=== PATIENT | female | born 1990 | race Caucasian/White ===

== ENCOUNTER 2022-12-27 11:43 | Emergency (ER) | payer MEDICAID, SELFPAY ==
[2022-12-27 11:45] VITALS: BP 127/85; PULSE 103; RESP 16; TEMP 37.2; O2SAT 98
[2022-12-27] MEDS: Lidocaine 1% Multi-Dose W/EPI 1/100,000 50 ML VIAL (12:18)
--- NOTE | 2022-12-27 13:07 | ED.GENADUL_ITS ---
Discharge Plan Disposition Patient Disposition: Home Discharge Details Clinical Impression: Laceration of hand Primary Care Provider: Madeline Campbell ED Provider: Jesus Rocha Home Meds and New Rx's Prescriptions: Continued lamotrigine [Lamictal ODT] 50 mg tablet,disintegrating 50 mg PO DAILY venlafaxine [Effexor XR] 37.5 mg capsule,extended release 24hr 37.5 mg PO DAILY Vyvanse 40 mg capsule 50 mg PO DAILY Discharge Instructions Instructions: Laceration (ED) Additional Instructions: Watch for any signs of infection and return immediately to the emergency department if these occur. Otherwise keep dressing in place for the next 24-48 hours and then keep wound clean and dry. Return to the emergency department 12 days for suture removal. Stand Alone Forms: Work Release Discharge Data Discharge Date/Time-TO BE ENTERED AT DEPARTURE: 12/27/22 13:21 Medical Decision Making Fall with left hand laceration that is a flap laceration. Patient up-to-date on tetanus. 3.5 cm in total length. Distal to injury patient does have two-point discrimination, sensation of light touch and sharp touch along with temperature sensation. Patient has full range of motion of thumb and fingers. No other injury or trauma is noted. Please see procedure note for wound repair. After discussion of diagnosis and plan of care patient has no further needs, questions, or concerns and states clear understanding to return to the emergency department for any worsening symptoms. This documentation was generated using [email or web address] dictation system, please disregard any oddities of phrase or misspellings. HPI General Mode of arrival: ambulatory . Date/Time Provider Initiated Documentation: 12/27/22 11:43 . Limitations to Documentation: no limitations . Information obtained by: patient and RN notes reviewed . History of Present Illness 32 year old F presents to the emergency department with the chief complaint of Left hand laceration, described as mild, with intensity rated at 3. Quality is described as sharp, and is localized to the left and upper extremity. Patient reports no radiation. Patient started experiencing this hour(s) (1) and it has been constant. No relieving factors improve symptom(s), No exacerbating factors reported . Patient notes no other symptoms.. Patient did receive the following treatments prior to arrival, none Related Data Home Medications Medication Instructions Recorded Confirmed lamotrigine 50 mg disintegrating 50 mg PO DAILY 12/27/22 12/27/22 tablet (Lamictal ODT) lisdexamfetamine 40 mg capsule 50 mg PO DAILY 12/27/22 12/27/22 (Vyvanse) venlafaxine 37.5 mg 37.5 mg PO DAILY 12/27/22 12/27/22 capsule,extended release 24 hr (Effexor XR) Allergies Allergy/AdvReac Type Severity Reaction Status Date / Time No Known Allergies Allergy Verified 12/27/22 11:51 General Stated Complaint: Laceration ARIADNE: 4 Review of Systems Narrative: 6 systems reviewed and unremarkable except what is marked below. Musculoskeletal Musculoskeletal: Reports as per HPI, Denies limited range of motion, Denies numbness and Reports tingling Integumentary/Breasts Skin/Breast: Reports as per HPI Neurologic Neurologic: Denies numbness and Reports tingling PFSH All Active Problems Laceration of hand (Acute) Social History Smoking/Tobacco Use Status: Never Smoking risk assessment performed?: Yes Alcohol Intake: current Alcohol Intake frequency: a few times a month Drug use: Never Substance use type: does not use Details: does use editables Do you feel safe at home: Yes Do you feel safe in your relationship?: Yes Exam Const General: cooperative, no acute distress and not ill appearing Orientation: alert, awake and oriented x3 Resp Effort & Inspection: normal respiratory effort, able to speak in complete sentences and no respiratory distress Cardio Rate: regular rate Rhythm: regular rhythm Pulses: normal peripheral pulses Neuro General: patient alert, patient awake, patient oriented x3, moves all extremities and no focal motor deficits Sensory Exam: no sensory deficits noted Extrem General: normal exam except as noted Left upper extremity: hand Details: normal capillary refill, neuromotor exam normal, neurosensory exam normal, tendon exam normal, tenderness Location: of the palm Location: at the thenar eminence, vascular exam Details: radial pulse present, normal ROM of fingers and laceration palm palmar aspect Details: flap, involving subcutaneous tissue, with motor nerve function intact and with sensation intact Course Vital Signs Vital signs: Vital Signs Temperature 37.2 C 12/27/22 11:45 Pulse 103 H 12/27/22 11:45 Respiratory Rate 16 12/27/22 11:45 Blood Pressure 127/85 12/27/22 11:45 Pulse Oximetry 98 12/27/22 11:45 Temperature 37.2 C 12/27/22 11:45 Temperature Source Oral 12/27/22 11:45 Pulse 103 H 12/27/22 11:45 Respiratory Rate 16 12/27/22 11:45 Respiratory Effort Normal 12/27/22 11:50 Blood Pressure 127/85 12/27/22 11:45 Blood Pressure Position Sitting 12/27/22 11:45 Pulse Oximetry 98 12/27/22 11:45 Oxygen Delivery Method Room Air 12/27/22 11:45 Oxygen Flow Rate 0 12/27/22 11:45 Pain Level 3 12/27/22 11:53 Procedures Laceration Laceration 1: Site: hand Side (If applicable): left Size (cm): 3.5 Description: flap Depth: simple, single layer Local Anesthetic: Lidocaine 1% and with Epi Amount of anesthesia used (mL): 5 Pre-repair: wound explored and irrigated extensively Skin layer closed with: other (prolene) Size (cm): 4-0 Number of sutures: 5 Technique: simple, interrupted PAWSS Have you Been Recently Intoxicated or Drunk Within the Last 30 days?: No Have you Ever Experienced Previous Episodes of Alcohol Withdrawal?: No Have you ever Experienced Withdrawal Seizures?: No Have you ever Experienced Delirium Tremens(DT)s?: No Have you ever undergone Alcohol Rehabilitation Treatment (i.e, inpt ot outpatient treatment programs)?: No Have you ever Experienced Blackouts?: No Have you ever Combined Alcohol with other Downers within the last 90 days?: No Have you ever Combined Alcohol with any other Substance of Abuse during the last 90 days?: No Result: 0
--- NOTE | 2022-12-30 13:27 | NUR.NOTE ---
Nursing Note: PT called and asked for referral to ortho for follow up
--- NOTE | 2022-12-30 13:32 | ED.FU.B_ITS ---
Date of service: 12/30/22 Time of Service: 13:32 Follow Up Plan: Patient called in follow-up to her visit on 12/27/2022. She notes that she is having some difficulty with thumb movement and also that the tips of her fingers feel numb like [id number]. She also notes substantial pain when she attempts to move her digits. Patient is requesting [place] to [place] [facility] I think this is appropriate given her symptoms and concern for potential neurologic injury. ED care management is currently on vacation. I will ask that the community health specialist here today assist in arranging timely outpatient follow-up with hand specialist at [facility].
--- NOTE | 2022-12-30 14:28 | NUR.NOTE ---
Nursing Note: Patient called stating that she now wanted a referral to a hand specialist at [facility] [place]. Dr. Soren Hall spoke witih the patient and determined that with her now symptoms she needed to be seen C[facility] for concern for nerve injury and possible tendon laceration. I called [facility] [place] [facility]; Reji, and did the referral with her. I faxed to them the provider notes, RN note, and demographics. [facility] [place] [facility] faxed to [facility], #[phone].
== END 2022-12-27 13:21 | disposition home or self-care (01) ==
PROVIDERS: Emergency Provider Nurse Practitioner Family; PCP Physician Assistant
DX: S61.412A Laceration without foreign body of left hand, initial encounter (principal); W19.XXXA Unspecified fall, initial encounter
CPT/HCPCS: 12002; 99282; 99283

== ENCOUNTER 2023-05-02 14:31 | Outpatient (REF) | payer MEDICAID, SELFPAY | END 2023-05-02 14:32 | disposition home or self-care (01) | LOC: LBN 14:31 | PROVIDERS: PCP Physician Assistant; Visit Provider Nurse Practitioner Family | DX: J02.9 Acute pharyngitis, unspecified (principal) | CPT/HCPCS: 87081 ==

== ENCOUNTER 2023-11-18 15:54 | Outpatient (CLI) | payer MEDICAID, SELFPAY ==
--- NOTE | 2023-11-18 15:45 | DI.RAD_ITS ---
Exam(s) XR KNEE RT 3V AP,LAT,PHOEBE EXAM: XR KNEE RT 3V AP,LAT,PHOEBE CLINICAL HISTORY: RIGHT KNEE PAIN. TECHNIQUE: 2D digital imaging was performed. COMPARISON: No exams were available for comparison FINDINGS: 3 views No evidence of fracture nor prominent joint effusion. Bone density normal. No osseous lesions. No degenerative changes. No offset of the patella nor narrowing of the patellofemoral compartment. No osteochondral defects IMPRESSION: No acute osseous findings in the knee. No prominent joint effusion evident. DATA REPOSITORY: RADIATION DOSE DELIVERED:
== END 2023-11-18 15:55 | disposition home or self-care (01) ==
LOC: DIORS 15:54
PROVIDERS: PCP Family Medicine; Visit Provider Student in an Organized Health Care Education/Training Program
DX: M25.561 Pain in right knee (principal)
CPT/HCPCS: 73562

== ENCOUNTER → 2023-12-30 03:58 | Outpatient (CLI) | payer MEDICAID, SELFPAY ==
--- NOTE | 2023-12-30 06:45 | DI.MRI_ITS ---
Exam(s) MR LOWER JOINT RT WO EXAM: MR LOWER JOINT RT WO CLINICAL HISTORY: ? acute MEDIAL MENISCAL TEAR,S83.241a TECHNIQUE: Multiplanar multisequence MRI of the knee was performed. COMPARISON: DOC,MR MRI-LOWER EXT ANY JOINT WITHOUT CONTRAST from 10/18/2015 CR XR KNEE RT 3V AP,LAT,PHOEBE from 11/18/2023 FINDINGS: EFFUSION: There is a minimal amount of increased joint fluid in the lateral aspect of the joint predo minantly between the iliotibial band and lateral condyle. Iliotibial band itself appears unremarkabl e. There is a thin Alejandro cyst in the medial popliteal fossa which measures 2.5 cm craniocaudal lengt h by 0.3 cm wide. MARROW:There is no evidence of fracture, bone contusion, nor osteochondral defects.. There are no si gnificant osseous lesions. PATELLOFEMORAL COMPARTMENT: The quadriceps tendon is intact. The patellar ligament is intact. There is mild-moderate relatively focal thinning of the retropatellar cartilage over the medial facet with subjacent mild subarticular bone edema in the posterior patella at this level. No osteochondral defect. The retropatellar cartilage over the mid and lateral facet exhibits normal thickness. There is no osteochondral defect.There is no intraosseous signal to suggest recent patellar dislocation. Th ere are no patellar retinacular tears. CRUCIATE LIGAMENTS: The anterior cruciate ligament is intact.The posterior cruciate ligament is intac t. MEDIAL COMPARTMENT/MEDIAL MENISCUS: There is mild thinning at the root of the posterior horn of the m edial meniscus but there does not appear to be an actual tear at this level nor elsewhere in the post erior and anterior horns of the medial meniscus..There is very mild subarticular bone edema in the ou ter 3rd of the main weight-bearing surface of the medial femoral condyle. No prominent cartilage thin giselle over this area. No osteochondral defect. No osteophyte evident at this level.. MEDIAL COLLATERAL LIGAMENT: Intact. Also no evidence of significant meniscocapsular separation. LATERAL COMPARTMENT/LATERAL MENISCUS: There is no evidence of lateral meniscal tear.There are no sherri dral defects, osteochondral defects, subarticular marrow edema, nor osteophytes evident. ILIOTIBIAL BAND: Intact LATERAL COLLATERAL LIGAMENT COMPLEX: The fibular collateral ligament is intact. The biceps femoris t endon is intact.Popliteus muscle and tendon are intact. IMPRESSION: 1. Small amount of increased joint fluid and small-thin Alejandro's cyst. No loose intra-articular bodies . 2. Mild thinning of the inner most aspect of the posterior horn of the medial meniscus at the level t he root but with out a true meniscal tear at this level nor elsewhere in the knee. Also no meniscal e xtrusion nor intrusion nor meniscocapsular separation. 3. Small area of subtle subarticular bone edema in the outer most aspect of the medial femoral condyl e over the main weight-bearing surface. No osteochondral defect at this level. 4. No evidence of cruciate nor collateral ligament tears. 5. Mild-moderate focal thinning of the retropatellar cartilage over the medial facet with mild subart icular bone edema in the posterior medial aspect of the patella. No osteochondral defects seen at thi s level (nor elsewhere in the knee). DATA REPOSITORY:
== END ==
PROVIDERS: PCP Physician Assistant; Visit Provider Student in an Organized Health Care Education/Training Program
DX: S83.241A Other tear of medial meniscus, current injury, right knee, initial encounter (principal)
CPT/HCPCS: 73721

== ENCOUNTER → 2024-04-30 14:54 | Outpatient (CLI) | payer MEDICAID, SELFPAY ==
--- NOTE | 2024-04-30 10:00 | DI.US_ITS ---
Exam(s) US PELVIS TRANSVAGINAL EXAM: US PELVIS TRANSVAGINAL CLINICAL HISTORY: left lower pelvic pain, R10.2 TECHNIQUE: Transabdominal and transvaginal imaging was performed using standard protocol. COMPARISON: No exams were available for comparison FINDINGS: UTERUS: Anteverted. 8.5 x 4.2 x 5.3 cm Endometrium: 7 mm 8 millimeter cyst within the endometrium near the fundus. No visible polyp. Myometrium: Unremarkable. Cervix: Unremarkable. OVARIES: Right: Cyst or mass: None. Left: Cyst or mass: None. DOPPLER: Color: Symmetric and uniform flow to both ovaries. No hyperemia. CUL-DE-SAC: Free fluid: None. IMPRESSION: 1. Normal-size uterus. Endometrial thickness cysts 7 millimeters. 8 millimeter endometrial cyst. 2. Unremarkable bilateral ovaries. DATA REPOSITORY:
== END ==
PROVIDERS: PCP Physician Assistant; Visit Provider Physician Assistant
DX: R10.2 Pelvic and perineal pain (principal); N80.00 Endometriosis of the uterus, unspecified
CPT/HCPCS: 76830; 76856

== ENCOUNTER 2024-04-30 15:06 | Outpatient (REF) | payer MEDICAID, SELFPAY ==
[2024-05-04 14:46] LABS: Chlamydia Result Invalid (Negative); GC Result Invalid (Negative)
== END 2024-04-30 15:07 | disposition home or self-care (01) ==
LOC: LBN 15:06
PROVIDERS: PCP Physician Assistant; Visit Provider Physician Assistant
DX: N39.0 Urinary tract infection, site not specified (principal); R10.2 Pelvic and perineal pain; N76.0 Acute vaginitis
CPT/HCPCS: 87491; 87591; 87086; 87480; 87510; 87660

== ENCOUNTER 2024-06-20 14:30 | Emergency (ER) | payer MEDICAID, SELFPAY ==
[2024-06-20 14:43] VITALS: BP 136/83; PULSE 102; RESP 18; TEMP 37.1; O2SAT 100
--- NOTE | 2024-06-20 14:45 | DI.CT_ITS ---
Exam(s) CT ABDOMEN PELVIS W EXAM: CT ABDOMEN PELVIS W CLINICAL HISTORY: LLQ pain hx endometrial cyst, ablasion, salpingect. TECHNIQUE: Imaging Protocol: Axial computed tomography images with coronal and sagittal reformatted images were created and reviewed CONTRAST MATERIAL: Intravenous: Omnipaque-350 100cc Oral: None COMPARISON: No exams were available for comparison FINDINGS: VISUALIZED LUNG BASES: No nodules nor pleural effusions evident. Abdominal images are somewhat blurred from motion artifact. Patient was apparently not able to hold still. ABDOMEN: There is no ascites. LIVER: There are no focal hepatic lesions evident. No dilated intrahepatic ducts. GALLBLADDER/BILIARY: No obvious gallbladder pathology. CBD is not dilated. PANCREAS: No evidence of pancreatic mass nor dilatation of the pancreatic duct. SPLEEN: Spleen is not enlarged. No obvious intrasplenic lesions. Splenic and portal veins are paten t. ADRENALS: There are no significant adrenal masses. KIDNEYS:No cysts evident. No solid renal masses. No calculi nor hydronephrosis.. ABDOMINAL AORTA: Abdominal aorta is not enlarged. LYMPH NODES:There is no retroperitoneal nor paraaortic adenopathy. ABDOMINAL WALL: No evidence of significant anterior abdominal wall nor inguinal hernia. GI: There is no evidence of bowel obstruction, obvious free intraperitoneal air, nor abscess. PELVIS: GI: Appendix is difficult to identify is separate structure. No evidence of obvious acute appendicit is.No evidence of sigmoid diverticulitis. LYMPH NODES: There is no intrapelvic nor inguinal adenopathy. REPRODUCTIVE: Uterus and adnexal regions appear age-appropriate. There is a small cyst in the right ovary which measures approximately 1.3 x 1.3 cm, most probably just follicular. There are no signifi cant adnexal findings and there is no free fluid in the adnexal regions nor in the cul-de-sac. URINARY BLADDER: No calculi nor obvious masses evident not distended. Mild uniform thickening of the urinary bladder wall is most probably related to under distension. There is no significant perivesi cular streaking. OSSEOUS: No fractures and no significant osseous lesions. IMPRESSION: 1. Less than optimal study due to motion artifact. However, there are no obvious acute findings in t he abdomen pelvis. 2. There is a 1.3 cm cyst in the right ovary which is probably follicular. No free fluid. Report called by myself to ER physician 06/20/2024 at 4:45 p.m. RADIATION DOSE DELIVERED: 334.84mGy.cm Total DLP DATA REPOSITORY: All CT scans at this facility are submitted to the National Radiology Data Registry (NRDR) Dose Index Registry (DIR) with the [employer] (ACR). RADIATION OPTIMIZATION: All CT scans at this facility use at least one of these dose optimization te chniques: automated exposure control; mA and/or kV adjustment per patient size (includes targeted exa ms where dose is matched to clinical indication); or iterative reconstruction.
[2024-06-20] MEDS: ACETAMINOPHEN 1,000 MG/100 ML BTL 400 MG IVPB (15:20)
[2024-06-20] MEDS: Normal Saline 1,000 ML 1000 ML IV (15:20)
--- NOTE | 2024-06-20 15:31 | W.ED.GENAD ---
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 Clinical Impression: Ovarian cyst, Abdominal pain Primary Care Provider: Madeline Campbell ED Provider: Shaggy Massey Home Meds and New Rx's Prescriptions: No Action lamotrigine [Lamictal ODT] 50 mg tablet,disintegrating 50 mg PO DAILY venlafaxine [Effexor XR] 37.5 mg capsule,extended release 24hr 37.5 mg PO DAILY Vyvanse 40 mg capsule 50 mg PO DAILY ondansetron 4 mg tablet,disintegrating 4 mg PO DAILY PRN (Reason: nausea and vomiting) Qty: 30 0RF lisdexamfetamine [Vyvanse] 50 mg capsule 50 mg PO DAILY venlafaxine [Effexor XR] 37.5 mg capsule,extended release 24hr 37.5 mg PO DAILY lamotrigine [Lamictal] 25 mg tablet 50 mg PO DAILY fexofenadine [Asya Allergy] 180 mg tablet 180 mg PO DAILY Discharge Instructions Instructions: Abdominal Pain, Adult ED Additional Instructions: You are found to have a 1.3 cm right ovarian cyst. Follow-up closely with your 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 team. Please return to the emergency department for any worsening symptoms HPI General Date/Time Provider Initiated Documentation: 06/20/24 14:36. 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 Endorses some mild intermittent spotting over the last several months to years Related Data Home Medications ?Medication ?Instructions ?Recorded ?Confirmed lamotrigine 50 mg disintegrating 50 mg PO DAILY 12/27/22 06/20/24 tablet (Lamictal ODT) lisdexamfetamine 40 mg capsule 50 mg PO DAILY 12/27/22 06/20/24 (Vyvanse) venlafaxine 37.5 mg 37.5 mg PO DAILY 12/27/22 06/20/24 capsule,extended release 24 hr (Effexor XR) ondansetron 4 mg disintegrating 4 mg PO DAILY PRN nausea and 08/01/23 06/20/24 tablet vomiting #30 tabs fexofenadine 180 mg tablet 180 mg PO DAILY 11/18/23 06/20/24 (Asya Allergy) lamotrigine 25 mg tablet (Lamictal) 50 mg PO DAILY 11/18/23 06/20/24 lisdexamfetamine 50 mg capsule 50 mg PO DAILY 11/18/23 06/20/24 (Vyvanse) venlafaxine 37.5 mg 37.5 mg PO DAILY 11/18/23 06/20/24 capsule,extended release 24 hr (Effexor XR) Previous Rx's ?Medication ?Instructions ?Recorded ondansetron 4 mg disintegrating 4 mg PO DAILY PRN nausea and 08/01/23 tablet vomiting #30 tabs Allergies Allergy/AdvReac Type Severity Reaction Status Date / Time Latex, Natural Rubber AdvReac Intermediate Hives Verified 06/20/24 14:47 General Stated Complaint: 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 ARIADNE: 3 Exam Narrative Exam Narrative: Alert oriented interactive Voice mucous membranes tolerate secretions Normal voice no stridor Normal respiratory effort speaking full sentences, no tachypnea no cyanosis Abdomen soft nontender nondistended no palpable mass Moving all extremities without deficit warm well-perfused extremities Alert oriented interactive no focal deficits ambulatory without assistance no ataxia, normal speech Course Vital Signs Vital signs: Vital Signs Temperature 37.1 C 06/20/24 14:43 Pulse 102 H 06/20/24 14:43 Respiratory Rate 18 06/20/24 14:43 Blood Pressure 136/83 06/20/24 14:43 Pulse Oximetry 100 06/20/24 14:43 Temperature 37.1 C 06/20/24 14:43 Pulse 102 H 06/20/24 14:43 Respiratory Rate 18 06/20/24 14:43 Respiratory Effort Normal 06/20/24 15:22 Blood Pressure 136/83 06/20/24 14:43 Pulse Oximetry 100 06/20/24 14:43 Pain Level 6 06/20/24 15:18 Medical Decision Making 34-year-old female history of endometriosis, endometrial cysts, abnormal Pap smear, presents with generalized fatigue over the last week, left lower quadrant abdominal discomfort, no nausea no vomiting no diarrhea no constipation, chronic intermittent vaginal spotting, hemodynamically stable mildly tachycardic on arrival afebrile nontoxic nonperitoneal. Consider endometriosis versus ovarian cyst versus dysfunctional uterine bleeding versus UTI versus less likely diverticulitis or diverticulosis lower suspicion for colitis or enteritis lower suspicion for /ectopic . Must also consider malignancy. Will obtain CT abdomen pelvis, basic labs urinalysis Monospot COVID flu RSV fluids analgesia anti-inflammatory close reassessment. Patient has close follow-up with 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 team at [facility] early next month 16: 58 patient rest comfortably no acute distress labs and imaging are largely unremarkable, right ovarian cyst 1.[address] scan. Patient has close follow-up with [facility] 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 team. Given home care instructions and return precautions Quality:SDOH Health Related Social Needs: No Data to Display [facility] All Active Problems (Updated 06/20/24 @ 17:00 by Shaggy Massey MD) Abdominal pain (Acute) Ovarian cyst (Acute) Pelvic pain (Acute) No-show for appointment (Acute) Patellar tendinitis of both knees (Acute) Hypermobility syndrome (Acute) Acute medial meniscus tear of right knee (Acute) Social History (System 12/16/23 @ 12:04 by Samia Reveles) Smoking/Tobacco Use Status: Never Smoking risk assessment performed?: Yes Alcohol Intake: current Alcohol Intake frequency: a few times a month Drug use: Never Substance use type: does not use Details: does use editables Housing: house Do you feel safe at home: Yes Do you feel safe in your relationship?: Yes
[2024-06-20 15:35] LABS: Abs Immature Grans 0.03 10^3/uL (0.0-0.06); Absolute Basophil Count 0.03 10^3/uL (0.0-0.2); Absolute Eosinophil Count 0.04 10^3/uL (0.0-0.7); Absolute Lymphocyte Count 1.16 10^3/uL (1.2-3.4); Absolute Monocyte Count 0.37 10^3/uL (0.1-0.8); Absolute Neutrophil Count 4.88 10^3/uL (1.2-6.7); Basophils % 0.5 %; Eosinophils % 0.6 %; HCT 46.1 % (36.0-46.0); Immature Grans % 0.5 %; Lymphocytes % 17.8 %; MCH 30.5 pg (27.0-33.0); MCHC 32.5 % (32.0-36.0); MCV 94 fL (80-95); MPV 9.2 fL (8.0-11.0); Monocytes % 5.7 %; Neutrophils % 74.9 %; Platelet Count 283 10^3/uL (130-400); RBC 4.91 10^6/uL (3.93-5.22); RDW 11.9 % (11.7-14.6); RDW-SD 41.3 fL; WBC 6.51 10^3/uL (4.4-10.8)
[2024-06-20 15:37] LABS: Bilirubin Negative (Negative); Blood Negative (Negative); Clarity Clear (Clear); Glucose Negative (Negative); Ketones Negative (Negative); Leukocyte Esterase Negative (Negative); Nitrite Negative (Negative); Urobilinogen 0.2 mg/dL (Up to 0.2)
[2024-06-20 15:49] LABS: Mono Screening Negative (Negative)
[2024-06-20 15:55] LABS: ALT 31 U/L (14-59); AST 32 U/L (15-37); Albumin 4.8 g/dL (3.4-5.0); Alkaline Phosphatase 88 U/L (46-116); BUN 7 mg/dL (7-18); Bilirubin, Total 0.81 mg/dL (0.2-1.0); CREATININE 0.8 mg/dL (0.55-1.02); Calcium 9.4 mg/dL (8.5-10.1); Chloride 99 mmol/L (98-107); Estimated GFR 99.09 (mL/min/1.73m2); Glucose 135 mg/dL (74-106); Potassium 3.3 mmol/L (3.5-5.1); Sodium 139 mmol/L (136-145); Total Protein 8.5 g/dL (6.4-8.2)
[2024-06-20] MEDS: Normal Saline - Diluent 50 ML VIAL IJ (16:23)
[2024-06-20] MEDS: Omnipaque 350 MG/ML 100 ML BTL IJ (16:24)
[2024-06-20 16:27] LABS: COVID-19 PCR Negative (Negative); Influenza A PCR Negative (Negative); Influenza B PCR Negative (Negative); RSV PCR Negative (Negative); Source Nasopharynx
[2024-06-20 16:53] VITALS: BP 122/86; PULSE 80; RESP 14; TEMP 36.8; O2SAT 98
--- NOTE | 2024-06-21 08:38 | NUR.NOTE ---
[id number] patient called stating that she has hives. Some are blotchy and spreading all over. No trouble breathing. She stated she had CT contrast yesterday, and is wondering if that is causing it. Consulted with Jane Begum RN and told the patient that she should return to ED or see her PCP for re-evaluation. Patient stated she would. Nursing Note:
== END 2024-06-20 17:09 | disposition home or self-care (01) ==
PROVIDERS: Emergency Provider Emergency Medicine; PCP Physician Assistant
DX: R10.32 Left lower quadrant pain (principal); N83.201 Unspecified ovarian cyst, right side
CPT/HCPCS: 80053; 81025; 87637; 96365; 99285; 74177; 81003; 85025; 86308; 99284; J0131; J3490

== ENCOUNTER 2024-06-21 09:15 | Emergency (ER) | payer MEDICAID, SELFPAY ==
[2024-06-21 09:17] VITALS: BP 151/98; PULSE 122; RESP 18; TEMP 36.9; O2SAT 98
[2024-06-21] MEDS: diphenhydrAMINE 50 MG/ML VIAL IVP (09:37)
[2024-06-21] MEDS: Famotidine 20 MG/2 ML VIAL IVP (09:37)
--- NOTE | 2024-06-21 09:37 | ED.GENADUL_ITS ---
Discharge Plan Disposition Patient Disposition: Home Condition: Stable Discharge Details Clinical Impression: Anaphylactic reaction, Allergic reaction to contrast dye Primary Care Provider: Madeline Campbell ED Provider: Soren Hall Home Meds and New Rx's Prescriptions: New prednisone 20 mg tablet 20 mg PO DAILY Qty: 8 0RF diphenhydramine HCl [Benadryl Allergy] 25 mg tablet 25 mg PO TID PRNQty: 10 0RF Continued venlafaxine [Effexor XR] 37.5 mg capsule,extended release 24hr 37.5 mg PO DAILY Vyvanse 40 mg capsule 50 mg PO DAILY ondansetron 4 mg tablet,disintegrating 4 mg PO DAILY PRN (Reason: nausea and vomiting) Qty: 30 0RF lamotrigine [Lamictal] 25 mg tablet 50 mg PO DAILY fexofenadine [Asya Allergy] 180 mg tablet 180 mg PO DAILY magnesium oxide 500 mg capsule 500 mg PO DAILY ABC Complete Women's 18-400 mg-mcg tablet 1 tab PO DAILY Discharge Instructions Instructions: Anaphylaxis - Discharge instructions Additional Instructions: There is concern that you had an anaphylactic reaction to contrast dye. Please be sure to let your healthcare provider know this contrast allergy in the future. Please contact your primary care physician to arrange follow-up. Return to the ER immediately for any worsening or new concerning symptoms. Referrals: Madeline Campbell [Primary Care Provider] - [facility] General Mode of arrival: ambulatory . Date/Time Provider Initiated Documentation: 06/21/24 09:19 . Limitations to Documentation: no limitations . Information obtained by: patient . HPI Narrative: 34-year-old female presents with chief complaint of rash. Patient notes itchy hives that started last night and have persisted. Patient notes localized to a full-body, waxing and waning. She notes associated feeling of something in her throat. She is able to swallow. No tongue swelling. No shortness of breath. Patient did take Zyrtec about 45 minutes ago. 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 Patient was here yesterday for abdominal pain and had CT of the abdomen pelvis with IV contrast. No known prior history to contrast dye although her father has contrast dye allergy. No new meds or foods since ED evaluation yesterday. Related Data Home Medications ?Medication ?Instructions ?Recorded ?Confirmed lisdexamfetamine 40 mg capsule 50 mg PO DAILY 12/27/22 06/21/24 (Vyvanse) venlafaxine 37.5 mg 37.5 mg PO DAILY 12/27/22 06/21/24 capsule,extended release 24 hr (Effexor XR) ondansetron 4 mg disintegrating 4 mg PO DAILY PRN nausea and 08/01/23 06/21/24 tablet vomiting #30 tabs fexofenadine 180 mg tablet 180 mg PO DAILY 11/18/23 06/21/24 (Asya Allergy) lamotrigine 25 mg tablet (Lamictal) 50 mg PO DAILY 11/18/23 06/21/24 diphenhydramine HCl 25 mg tablet 25 mg PO TID PRN #10 tabs 06/21/24 (Benadryl Allergy) magnesium oxide 500 mg capsule 500 mg PO DAILY 06/21/24 06/21/24 multivitamin-ferrous 1 tab PO DAILY 06/21/24 06/21/24 fumarate-folic acid 18 mg-400 mcg tablet (ABC Complete Women's) prednisone 20 mg tablet 20 mg PO DAILY #8 tabs 06/21/24 Previous Rx's ?Medication ?Instructions ?Recorded ondansetron 4 mg disintegrating 4 mg PO DAILY PRN nausea and 08/01/23 tablet vomiting #30 tabs diphenhydramine HCl 25 mg tablet 25 mg PO TID PRN #10 tabs 06/21/24 (Benadryl Allergy) prednisone 20 mg tablet 20 mg PO DAILY #8 tabs 06/21/24 Allergies Allergy/AdvReac Type Severity Reaction Status Date / Time Iodinated Contrast Media Allergy Severe Anaphylaxis Verified 06/21/24 11:11 oak Allergy Severe Anaphylaxis Verified 06/21/24 09:43 Latex, Natural Rubber AdvReac Intermediate Hives Verified 06/21/24 09:43 General Stated Complaint: Allergic ARIADNE: 3 Review of Systems All systems reviewed & are unremarkable except as noted in HPI and below Constitutional Constitutional: Denies fever(s) Cardiovascular Cardiovascular: Denies dyspnea Respiratory Respiratory: Denies dyspnea Gastrointestinal Gastrointestinal: Reports abdominal pain (LLQ) Exam Const General: cooperative HENMT Mouth: moist mucous membranes Throat: posterior oropharynx normal Other: Voice normal Eyes Conjunctivae: normal conjunctivae Sclera: normal sclerae Neck Neck: trachea midline and supple Resp Auscultation: clear to auscultation bilaterally, no rales, no rhonchi and no wheezes Cardio Rate: regular rate and not tachycardic Rhythm: regular rhythm GI Palpation: soft, not firm, no guarding, no masses, not rigid and nontender Skin Rashes: rashes noted (hives on neck and sparsely distributed on extremities) Neuro General: patient alert, patient awake and tone normal Extrem General: no edema Psych Appearance: grossly normal Mental Status: mental status grossly normal Course Vital Signs Vital signs: Vital Signs Temperature 36.9 C 06/21/24 09:17 Pulse 122 H 06/21/24 09:17 Respiratory Rate 18 06/21/24 09:17 Blood Pressure 151/98 H 06/21/24 09:17 Pulse Oximetry 98 06/21/24 09:17 Temperature 36.9 C 06/21/24 09:17 Temperature Source Oral 06/21/24 09:17 Pulse 122 H 06/21/24 09:17 Respiratory Rate 18 06/21/24 09:17 Respiratory Effort Short of Breath 06/21/24 09:23 Respiratory Pattern Normal 06/21/24 09:23 Blood Pressure 151/98 H 06/21/24 09:17 Blood Pressure Position Sitting 06/21/24 09:17 Pulse Oximetry 98 06/21/24 09:17 Oxygen Delivery Method Room Air 06/21/24 09:17 Oxygen Flow Rate 0 06/21/24 09:17 Pain Level 0 06/21/24 09:17 Medical Decision Making 951??patient seen immediately on arrival. Patient is a 34-year-old female with history of endometriosis, endometrial cysts, abnormal Pap smear, seen here yesterday for left lower quadrant abdominal pain, had CT of the abdomen pelvis with IV contrast and noted to have ovarian cyst. Patient returns with concern for allergic reaction. Patient is experiencing full body hives as well as sensation of swelling in her throat. Patient is tachycardic. Mildly hypertensive. Airway intact. Saturating well in no respiratory distress. Lungs clear bilaterally. Patient was experiencing SOB prior to arrival. 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 No known allergy to contrast dye. Plan to treat with Solu-Medrol IV, Benadryl IV, Pepcid IV. I will give IV fluid bolus. -- Patient reassessed and having some nausea. No vomiting. Zofran IV administered. 1113 --patient reassessed and symptoms have significantly improved. Swelling in throat has resolved. Patient continues to saturate well in no respiratory distress. Hemodynamically stable. 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 Reviewed use with the patient. Plan for discharge with outpatient follow-up. We will continue Benadryl over the next couple days and 5-day steroid burst. Usual and customary discharge instructions were reviewed. Patient was encouraged to return immediately for any worsening or new concerning symptoms. Lab Data Lab results reviewed: Yes I reviewed the patient's lab results. Labs: Laboratory Tests Range/Units 06/21/ 09:25 WBC (4.4-10.8) 10^3/uL 5.65 RBC (3.93-5.22) 10^6/uL 4.74 Hgb (11.2-15.7) g/dL 14.5 Hct (36.0-46.0) % 44.3 MCV (80-95) fL 94 MCH (27.0-33.0) pg 30.6 MCHC (32.0-36.0) % 32.7 RDW (11.7-14.6) % 11.9 Plt Count (130-400) 10^3/uL 256 MPV (8.0-11.0) fL 9.2 Immature Gran % % 0.4 Neutrophils % % 62.7 Lymphocytes % % 25.5 Monocytes % % 7.3 Eosinophils % % 3.2 Basophils % % 0.9 Nucleated RBC % (0.0-0.3) % 0.0 Absolute Neutrophils (1.2-6.7) 10^3/uL 3.55 Absolute Lymphocytes (1.2-3.4) 10^3/uL 1.44 Absolute Monocytes (0.1-0.8) 10^3/uL 0.41 Absolute Eosinophils (0.0-0.7) 10^3/uL 0.18 Absolute Basophils (0.0-0.2) 10^3/uL 0.05 Sodium (136-145) mmol/L 138 Potassium (3.5-5.1) mmol/L 3.7 Chloride (98-107) mmol/L 100 Carbon Dioxide (21.0-32.0) mmol/L 30.4 Anion Gap (3-11) mmol/L 7.6 BUN (7-18) mg/dL 6 L Creatinine (0.55-1.02) mg/dL 0.8 Est GFR (CKD-EPI 2020) (mL/min/1.73m2) 99.09 Glucose (74-106) mg/dL 92 Calcium (8.5-10.1) mg/dL 9.2 Total Bilirubin (0.2-1.0) mg/dL 0.85 AST (15-37) U/L 28 ALT (14-59) U/L 29 Alkaline Phosphatase (46-116) U/L 75 Total Protein (6.4-8.2) g/dL 7.9 Albumin (3.4-5.0) g/dL 4.3 Quality:SDOH Health Related Social Needs: No Data to Display PFSH All Active Problems (Updated 06/21/24 @ 11:22 by Soren Hall MD) Allergic reaction to contrast dye (Acute) Anaphylactic reaction (Acute) Abdominal pain (Acute) Ovarian cyst (Acute) Pelvic pain (Acute) No-show for appointment (Acute) Patellar tendinitis of both knees (Acute) Hypermobility syndrome (Acute) Acute medial meniscus tear of right knee (Acute) Social History Smoking/Tobacco Use Status: Current-Occasional Tobacco Type: cigarettes and e- cigarettes Smoking risk assessment performed?: Yes Alcohol Intake: current Alcohol Intake frequency: a few times a week Alcohol type: wine Drug use: Never Substance use type: does not use Housing: house Do you feel safe at home: Yes Do you feel safe in your relationship?: Yes
[2024-06-21] MEDS: methylPREDNISolone SUCC 125 MG VIAL IVP (09:38)
[2024-06-21 09:45] LABS: Abs Immature Grans 0.02 10^3/uL (0.0-0.06); Absolute Basophil Count 0.05 10^3/uL (0.0-0.2); Absolute Eosinophil Count 0.18 10^3/uL (0.0-0.7); Absolute Lymphocyte Count 1.44 10^3/uL (1.2-3.4); Absolute Monocyte Count 0.41 10^3/uL (0.1-0.8); Absolute Neutrophil Count 3.55 10^3/uL (1.2-6.7); Basophils % 0.9 %; Eosinophils % 3.2 %; HCT 44.3 % (36.0-46.0); HGB 14.5 g/dL (11.2-15.7); Immature Grans % 0.4 %; Lymphocytes % 25.5 %; MCH 30.6 pg (27.0-33.0); MCHC 32.7 % (32.0-36.0); MCV 94 fL (80-95); MPV 9.2 fL (8.0-11.0); Monocytes % 7.3 %; Neutrophils % 62.7 %; Platelet Count 256 10^3/uL (130-400); RBC 4.74 10^6/uL (3.93-5.22); RDW 11.9 % (11.7-14.6); RDW-SD 41.2 fL; WBC 5.65 10^3/uL (4.4-10.8)
[2024-06-21] MEDS: Normal Saline 1,000 ML 1000 ML IV (10:01)
[2024-06-21 10:05] LABS: ALT 29 U/L (14-59); AST 28 U/L (15-37); Albumin 4.3 g/dL (3.4-5.0); Alkaline Phosphatase 75 U/L (46-116); Anion Gap 7.6 mmol/L (3-11); BUN 6 mg/dL (7-18); Bilirubin, Total 0.85 mg/dL (0.2-1.0); CO2 30.4 mmol/L (21.0-32.0); CREATININE 0.8 mg/dL (0.55-1.02); Calcium 9.2 mg/dL (8.5-10.1); Chloride 100 mmol/L (98-107); Estimated GFR 99.09 (mL/min/1.73m2); Glucose 92 mg/dL (74-106); Potassium 3.7 mmol/L (3.5-5.1); Sodium 138 mmol/L (136-145); Total Protein 7.9 g/dL (6.4-8.2)
[2024-06-21] MEDS: Ondansetron 4 MG/2 ML VIAL IVP (10:13)
[2024-06-21 10:32] VITALS: BP 140/78; PULSE 87; RESP 16; O2SAT 100
[2024-06-21 11:01] VITALS: BP 113/74; PULSE 77; O2SAT 99
[2024-06-21 11:22] VITALS: BP 113/74; PULSE 77; RESP 16; O2SAT 99
== END 2024-06-21 11:31 | disposition home or self-care (01) ==
PROVIDERS: Emergency Provider Student in an Organized Health Care Education/Training Program; PCP Physician Assistant
DX: R21 Rash and other nonspecific skin eruption (principal); T50.8X5A Adverse effect of diagnostic agents, initial encounter
CPT/HCPCS: 36415; 80053; 83520; 96361; 96374; 96375; 99284; 85025; 99283; J1200; J2405; J2919

== ENCOUNTER 2024-06-22 08:13 | Emergency (ER) | payer MEDICAID, SELFPAY ==
[2024-06-22 08:23] VITALS: BP 121/81; PULSE 101; RESP 18; TEMP 36.2; O2SAT 98
--- NOTE | 2024-06-22 08:49 | DI.US_ITS ---
Exam(s) US PELVIS TRANSVAGINAL EXAM: US PELVIS TRANSVAGINAL CLINICAL HISTORY: Left lower quadrant pain. TECHNIQUE: Transabdominal and transvaginal pelvic ultrasound was performed using standard protocol. COMPARISON: US US PELVIS TRANSVAGINAL from 04/30/[address] ABDOMEN PELVIS W from 06/20/2024 FINDINGS: UTERUS: Position: Anteverted. Size: 7 long by 4.1 AP by 6.2 transverse cm Endometrium: 0.9 cm. Normal for patient's menstrual status. Myometrium: The myometrium appears mildly heterogeneous without discrete mass identified. There was a 0.9 x 0.6 x 0.7 cm cystic structure seen in the myometrium. Cervix: Small nabothian cysts are seen. OVARIES: Right: 3.2 x 3.5 x 2.1 cm Cyst or mass: No suspicious cystic or solid masses. A 1.6 x 1.5 x 1.4 cm simple follicular cyst is p resent. This was visualized on the CT examination from 06/20/2024. No suspicious ovarian lesions are seen on the right. Left: 1.9 x 1.6 x 1.6 cm Cyst or mass: No suspicious cystic or solid masses. DOPPLER: Color: Symmetric and uniform flow to both ovaries. CUL-DE-SAC: Free fluid: None. Other: None. IMPRESSION: 1. Heterogeneity of the myometrium with a 0.9 cm myometrial cyst. This can be seen with adenomyosis. 2. Endometrial stripe within normal limits at 0.9 cm. 3. Unremarkable ovaries. DATA REPOSITORY:
[2024-06-22] MEDS: Normal Saline 1,000 ML 1000 ML IV (09:28)
[2024-06-22] MEDS: Dexamethasone 4 MG/ML VIAL IVP (09:28)
[2024-06-22 09:40] LABS: Bilirubin Negative (Negative); Blood Negative (Negative); Clarity Clear (Clear); Glucose Negative (Negative); Ketones Negative (Negative); Leukocyte Esterase Negative (Negative); Nitrite Negative (Negative); Specific Gravity 1.015 (1.005-1.025); Urobilinogen 0.2 mg/dL (Up to 0.2)
--- NOTE | 2024-06-22 09:59 | ED.GENADUL_ITS ---
Discharge Plan Disposition Patient Disposition: Home Discharge Details Clinical Impression: Allergic reaction, Pelvic pain Primary Care Provider: Madeline Campbell ED Provider: Camille Richardson Home Meds and New Rx's Prescriptions: Continued venlafaxine [Effexor XR] 37.5 mg capsule,extended release 24hr 37.5 mg PO DAILY Vyvanse 40 mg capsule 50 mg PO DAILY ondansetron 4 mg tablet,disintegrating 4 mg PO DAILY PRN (Reason: nausea and vomiting) Qty: 30 0RF lamotrigine [Lamictal] 25 mg tablet 50 mg PO DAILY fexofenadine [Asya Allergy] 180 mg tablet 180 mg PO DAILY magnesium oxide 500 mg capsule 500 mg PO DAILY ABC Complete Women's 18-400 mg-mcg tablet 1 tab PO DAILY prednisone 20 mg tablet 20 mg PO DAILY Qty: 8 0RF diphenhydramine HCl [Benadryl Allergy] 25 mg tablet 25 mg PO TID PRNQty: 10 0RF Discharge Instructions Additional Instructions: Please follow-up with gynecology at [facility] your scheduled appointment regarding her thickened endometrial liter Take ibuprofen and Tylenol as needed for pelvic pain Continue on your prednisone, Pepcid, and Benadryl, contrast reactions can last up to a week Please return should you have any new or worsening complaints and use your epinephrine pen should you start having anaphylactic signs and symptoms Stand Alone Forms: Work Release Discharge Data Discharge Date/Time-TO BE ENTERED AT DEPARTURE: 06/22/24 11:15 HPI General Date/Time Provider Initiated Documentation: 06/22/24 08:13 . HPI Narrative: This 34-year-old female with history of pelvic pain and recent CT abdomen and pelvis presents with persistent symptoms of allergic reaction. She states she has had recurrent sore throat and rash. Denies any fever or chills. Persistent and worsening left lower quadrant pain, under the care of of gynecology at [facility]. New sexual partner, monogamous. Denies any current difficulty swallowing. Took all meds prednisone, Zyrtec, and prednisone prior to arrival. Denies chance Related Data Home Medications ?Medication ?Instructions ?Recorded ?Confirmed lisdexamfetamine 40 mg capsule 50 mg PO DAILY 12/27/22 06/22/24 (Vyvanse) venlafaxine 37.5 mg 37.5 mg PO DAILY 12/27/22 06/22/24 capsule,extended release 24 hr (Effexor XR) ondansetron 4 mg disintegrating 4 mg PO DAILY PRN nausea and 08/01/23 06/22/24 tablet vomiting #30 tabs fexofenadine 180 mg tablet 180 mg PO DAILY 11/18/23 06/22/24 (Asya Allergy) lamotrigine 25 mg tablet (Lamictal) 50 mg PO DAILY 11/18/23 06/22/24 diphenhydramine HCl 25 mg tablet 25 mg PO TID PRN #10 tabs 06/21/24 06/22/24 (Benadryl Allergy) magnesium oxide 500 mg capsule 500 mg PO DAILY 06/21/24 06/22/24 multivitamin-ferrous 1 tab PO DAILY 06/21/24 06/22/24 fumarate-folic acid 18 mg-400 mcg tablet (ABC Complete Women's) prednisone 20 mg tablet 20 mg PO DAILY #8 tabs 06/21/24 06/22/24 Previous Rx's ?Medication ?Instructions ?Recorded ondansetron 4 mg disintegrating 4 mg PO DAILY PRN nausea and 08/01/23 tablet vomiting #30 tabs diphenhydramine HCl 25 mg tablet 25 mg PO TID PRN #10 tabs 06/21/24 (Benadryl Allergy) prednisone 20 mg tablet 20 mg PO DAILY #8 tabs 06/21/24 Allergies Allergy/AdvReac Type Severity Reaction Status Date / Time Iodinated Contrast Media Allergy Severe Anaphylaxis Verified 06/22/24 08:52 oak Allergy Severe Anaphylaxis Verified 06/22/24 08:52 Latex, Natural Rubber AdvReac Intermediate Hives Verified 06/22/24 08:52 General Stated Complaint: Allergic ARIADNE: 3 Exam Narrative Exam Narrative: Alert and oriented, no acute distress, oropharynx patent, uvula midline, lungs clear to auscultation. Mild left lower quadrant tenderness, no rebound or guarding, urticarial rash noted, thorax urticarial rash. Course Vital Signs Vital signs: Vital Signs Temperature 36.2 C L 06/22/24 08:23 Pulse 101 H 06/22/24 08:23 Respiratory Rate 18 06/22/24 08:23 Blood Pressure 121/81 06/22/24 08:23 Pulse Oximetry 98 09/24/24 08:23 Temperature 36.2 C L 06/22/24 08:23 Temperature Source Tympanic 06/22/24 08:23 Pulse 101 H 06/22/24 08:23 Respiratory Rate 18 06/22/24 08:23 Respiratory Effort Normal 06/22/24 08:47 Respiratory Pattern Normal 06/22/24 08:47 Blood Pressure 121/81 06/22/24 08:23 Pulse Oximetry 98 06/22/24 08:23 Lab/Test Results Lab/Test Results: POC- Test(urine) Negative Medical Decision Making 34-year-old female no acute distress, no evidence of anaphylaxis, will give 4 mg of Decadron, IV fluids and reassess, time of reassessment patient feels markedly improved, no indication for epinephrine at this time. I did order an ultrasound to further evaluate patient's pelvic pain. It does show thickened endometrium, she does have appointment with [facility] gynecology regarding this for 4 . POC negative, pending GC chlamydia test the test that I ordered in April when I initially saw the patient was not adequate. Low clinical suspicion for pelvic inflammatory disease as patient is quite low risk. Urinalysis did not show evidence of acute abnormality and negative test today. Will continue prednisone, Pepcid, and Zyrtec. Patient is aware that contrast reaction can last up to 7 days she will continue to monitor and take medications for treatment at home. Given the threshold to return with new or worsening complaints and discharged home in stable condition with stable vitals Quality:SDOH Health Related Social Needs: No Data to Display PFSH All Active Problems (Updated 06/22/24 @ 10:57 by KRISTINE Helms) Pelvic pain (Acute) Allergic reaction (Acute) Allergic reaction to contrast dye (Acute) Anaphylactic reaction (Acute) Abdominal pain (Acute) Ovarian cyst (Acute) Pelvic pain (Acute) No-show for appointment (Acute) Patellar tendinitis of both knees (Acute) Hypermobility syndrome (Acute) Acute medial meniscus tear of right knee (Acute) Social History Smoking/Tobacco Use Status: Current-Occasional Tobacco Type: cigarettes and e- cigarettes Smoking risk assessment performed?: Yes Alcohol Intake: current Alcohol Intake frequency: a few times a week Alcohol type: wine Drug use: Never Substance use type: does not use Housing: house Do you feel safe at home: Yes Do you feel safe in your relationship?: Yes
[2024-06-22 11:16] VITALS: BP 107/65; PULSE 99; RESP 16; O2SAT 100
[2024-06-23 11:50] LABS: Chlamydia Result Negative (Negative); GC Result Negative (Negative)
== END 2024-06-22 11:15 | disposition home or self-care (01) ==
PROVIDERS: Emergency Provider Physician Assistant; PCP Physician Assistant
DX: R21 Rash and other nonspecific skin eruption (principal); T78.40XA Allergy, unspecified, initial encounter; R10.2 Pelvic and perineal pain
CPT/HCPCS: 81025; 87491; 87591; 96361; 96374; 99284; 76830; 76856; 81003; 99283; J1100